=== PATIENT | male | born 1935 | race Asian ===

== ENCOUNTER 2016-09-14 09:31 | Emergency (ER) | payer MEDICARE, OTHER ==
[~2016-09-14] VITALS: Ht 165.1 cm; Wt 66.4 kg
[2016-09-14] MEDS ORDERED: ETOMIDATE 2 MG/ML 10 ML VIAL IVP ONE ×2 (09:45→16:56)
[2016-09-14] MEDS ORDERED: ROCURONIUM BROMIDE 10 MG/ML 5 ML VIAL IVP ONE (09:45)
[2016-09-14] MEDS ORDERED: VECURONIUM BROMIDE 10 MG/VIAL IVP ONE (09:45)
[2016-09-14 10:06] LABS: ABG A-A DIFF O2 250.6 mmHg (10-20.0); ABG BASE EXCESS 2.6 mmol/L (-2.0-3.0); ABG HCO3 27.1 mmol/L (22.0-26.0); ABG PCO2 32 mmHg (35-45); ABG PH 7.515 (7.35-7.450); TEMPERATURE, FAHRENHEIT, BG 98.6 FAHREN (96.0-98.6)
[2016-09-14 10:08] LABS: ALLEN TEST, BLOOD GAS Positive
[2016-09-14 10:30] LABS: EOSINOPHILS # (AUTO) 0.38 K/uL (0.00-0.70); EOSINOPHILS % (AUTO) 3.03 % (1.0-6.0); HEMATOCRIT 34.6 % (41-53); HEMOGLOBIN 11.8 g/dL (13.5-17.5); LYMPHOCYTES # (AUTO) 1.1 K/uL (1.0-4.8); LYMPHOCYTES % (AUTO) 9.1 % (22.0-44.0); MEAN CORPUSCULAR HEMOGLOBIN 29.4 pg (26.0-34.0); MEAN CORPUSCULAR HGB CONC 34.1 G/dL (31.0-37.0); MEAN CORPUSCULAR VOLUME 86 fL (80-100); MONOCYTES # (AUTO) 0.7 K/uL (0.1-1.0); MONOCYTES % (AUTO) 5.3 % (2.0-9.0); NEUTROPHILS # (AUTO) 10.3 K/uL (1.8-7.7); NEUTROPHILS % (AUTO) 82.6 % (40.0-70.0); PLATELET COUNT (AUTO) 224 K/uL (150-450); RED BLOOD CELL COUNT(AUTO) 4.01 MIL/uL (4.50-5.90); RED CELL DISTRIBUTION WIDTH 15.3 % (11.5-14.5); WHITE BLOOD COUNT (AUTO) 12.4 K/uL (4.5-11.0)
[2016-09-14 10:32] LABS: ANION GAP 11 mmol/L (8-16); CARBON DIOXIDE 29 mmol/L (22-29); CHLORIDE 96 mmol/L (98-107); CREATININE 2.81 mg/dL (0.60-1.30); GLOMERULAR FILTR. RATE CALC 22 mL/min (>60); POTASSIUM 4.4 mmol/L (3.5-5.1); SODIUM SERUM 136 mmol/L (136-145); UREA NITROGEN, BLOOD 13 mg/dL (7-18)
[2016-09-14 10:34] LABS: PROTHROMBIN TIME 10.4 SEC (9.4-11.6)
[2016-09-14 10:56] LABS: ALANINE AMINOTRANSFERASE 54 U/L (12-78); ALBUMIN 3.7 g/dL (3.4-5.0); ASPARTATE AMINOTRANSFERASE 63 U/L (15-37); BILIRUBIN,TOTAL 0.5 mg/dL (0.1-1.0); CREATINE KINASE MB 2.7 ng/mL (0-5); CREATINE KINASE, TOTAL 237 U/L (39-308); TOTAL PROTEIN, SERUM 8.1 g/dL (6.4-8.2)
[2016-09-14] MEDS ORDERED: LevETIRAcetam 1,000 MG in DEXTROSE 5%-WATER 100 ML IV ONE (13:15)
[2016-09-14] MEDS ORDERED: DESMOPRESSIN ACETATE 20 MCG in SODIUM CHLORIDE 0.9% 50 ML IV ONE (13:15)
[2016-09-14] MEDS ORDERED: MANNITOL 20%-100 GM/500 ML 500 ML IV ONE (13:15)
[2016-09-14 13:55] VITALS: BP 151/70
[2016-09-14] MEDS ORDERED: VECURONIUM BROMIDE 10 MG/VIAL IV ONE (16:56)
== END 2016-09-14 15:14 | disposition short-term general hospital (02) ==
LOC: EMS 09:34
DX: S06.4X9A Epidural hemorrhage with loss of consciousness of unspecified duration, initial encounter (principal); J96.90 Respiratory failure, unspecified, unspecified whether with hypoxia or hypercapnia; Z99.2 Dependence on renal dialysis
CPT/HCPCS: 31500; 36415; 70450; 71010; 80053; 82550; 82553; 82805; 82962; 84484; 85025; 85610; 85730; 93005; 94002; 94640; 96365; 96366; 96368; 99291; 99292; J0712; J2597; J3490 ×2; J7050; J7060; X6522